=== PATIENT | male | born 1970 | race Hispanic/Latino ===

== ENCOUNTER 2022-01-18 02:23 | Emergency (ER) | payer MEDICAID, MEDICARE ==
[~2022-01-18] VITALS: Ht 162.6 cm; Wt 93.9 kg
[2022-01-18 03:48] VITALS: BP 138/79
[2022-01-18] MEDS ORDERED: LOSA25TA41 PO (04:18)
== END 2022-01-18 04:27 | disposition home or self-care (01) ==
LOC: EDH 02:23
DX: R05.9 Cough, unspecified (principal); T46.4X5A Adverse effect of angiotensin-converting-enzyme inhibitors, initial encounter; E11.9 Type 2 diabetes mellitus without complications; E78.00 Pure hypercholesterolemia, unspecified; I10 Essential (primary) hypertension; Y92.89 Other specified places as the place of occurrence of the external cause
CPT/HCPCS: 71045